=== PATIENT | male | born 1960 | race Caucasian/White ===

== ENCOUNTER 2021-09-17 08:25 | Emergency (ER) | payer BC ==
[~2021-09-17] VITALS: Ht 188 cm; Wt 87.0 kg
[2021-09-17] MEDS ORDERED: ATIVAN1 M1 PO (10:20)
[2021-09-17 10:27] VITALS: BP 151/94
== END 2021-09-17 10:45 | disposition home or self-care (01) | DRG 556 ==
LOC: ED 08:25
DX: M79.662 Pain in left lower leg (principal); W55.22XA Struck by cow, initial encounter; Z95.5 Presence of coronary angioplasty implant and graft